=== PATIENT | female | born 1960 | race Caucasian/White ===

== ENCOUNTER → 2016-07-26 | Outpatient (CLI) | payer OTHER ==
[~2016-07-26] MED LIST: ALBUTEROL 0.5ML INH; AMITRIPTYLINE100 MG PO; AMITRYPTYLINE PO; ARIXTRA10 MG/0.8 SQ; ATIVAN0.5 MG PO; AUGMENTIN PO; B-COMPLEX1 TAB PO; BACLOFEN10 MG PO; BAYER ASPIRIN325 M1; BAYER ASPIRIN325 M1 PO; BENZONATATE PO; BUSPIRONE HCL7.5 MG PO; DICLOFENAC PO; DICYCLOMINE HCL20 MG PO; DOCU SOFT100 M1 PO; ENDOCET 5-3251 EACH PO; FEROSUL325 ( 651 PO; FLEXERIL; FLEXERIL PO; FLEXERIL10 MG PO; FOLIC ACID1 MG PO; HYDROCODONE-A1 UDTA4 PO; HYDROXYZINE HCL25 M1 DOB; HYDROXYZINE HCL25 M1 PO; HYDROXYZINE PAM25 M1 PO; IBUPROFEN PO; IBUPROFEN800 MG PO; KETOPROFEN PO; KLOR-CON PO; LOW DOSE ASPIRI81 M1 PO; MEDROL4 MG/DOSE-; MEDROL4 MG/DOSE- PO; NEURONTIN300 MG PO; ONDANSETRON ODT4 MG PO; REMERON15 MG PO; REQUIP0.25 MG PO; ROBITUSSIN A-C S5 ML PO; SERTRALINE HCL50 M1 PO; SIMVASTATIN20 MG PO; TIZANIDINE HCL4 M1 PO; TRAZODONE PO; TYLENOL #3 PO; TYLOX1 CAP 5/50 DOB; VITAMIN D-32000 UNI1 PO; ZANAFLEX; ZITHROMAX PO; ZOCOR; ZOCOR20 MG PO
--- NOTE | ~2016-07-26 | MR112 ---
[facility] A Service of [facility] & [facility] RADIOLOGY TEXT RESULTS PATIENT: YURI ALATORRE LOCATION: [facility] : 56 UNIT #: [id number] AGE: [address]: Zack Johnson MD SEX: F ORDER DR: [id number] [facility] [address] [place], [place] [address] [id number] O MR#: [id number] Acc #: [id number] NAME: YURI ALATORRE. : 1960 SEX: F STUDY DATE/TIME: 07/26/2016 19:40 UNIT: [facility] ROOM: STUDY DESCRIPTION: MR Lumbar WWo Contrast Attending Physician: Zack Johnson M.D. Referring Physician: Zack Johnson M.D. Ordering Physician: Zack Johnson M.D. Primary Care Physician: Marvin Hawk M.D. MRI CENTER REPORT This report is preliminary unless electronic signature is present. EXAM MRI of the lumbar spine with and without contrast dated 07/26/2016 COMPARISON MRI of the lumbar spine with and without contrast dated 04/16/2016. HISTORY Acute low back pain since April 2016. Pain extends to the right leg. 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 FINDINGS Multisequence, multiplanar imaging of the lumbar spine was obtained with and without contrast. 13 mL of MultiHance was administered intravenously. Vertebral body heights are preserved. Edematous changes are noted from L1 to S1. Conus terminates at T12-L1. Signal of conus and cauda equina are within normal limits. Significant infectious/inflammatory changes are redemonstrated in the lower lumbar spine and it appears to have improved in the interval. There is abnormal soft tissue noted in the anterior epidural space of L4-5 extending slightly to the upper aspect of L5-S1 level. There is enhancing of normal soft tissue noted in bilateral lateral recess and neural foramina particularly on the right at the level of L4-5 extending from the abnormal disc. These kind of changes are also noted at L5-S1 but to a lesser degree and is seen predominantly along the superior aspect of the disc involving bilateral portions of the upper neural foramina and bilateral lateral recess. No well defined drainable abscess collection is identified in the adjacent soft tissues. There is some inflammatory change noted around the vertebral bodies in the paravertebral space and extending towards the epidural space. It was also noted previously but it probably had slightly improved in the interval. There are edematous changes noted in bilateral L5 and right L4 pedicle with minimal edema in the left L4 pedicle. The edematous changes noted adjacent to the facet joints and in STS. [facility] A Service of [facility] RADIOLOGY TEXT RESULTS PATIENT: YURI ALATORRE [facility] UNIT #: [id number] AGE: [address]: Zack Johnson MD SEX: F ORDER DR: the posterior paraspinal muscles have improved when compared to the prior sagittal T2 STIR sequence. Previously noted right psoas abscess at the level of S1 is not seen in the current study and there is probably some improvement. In the prior study the imaging extended further inferiorly to completely visualize the right psoas muscle infectious spread within the current study it did not go as far inferiorly, slightly limiting evaluation. There are nonenhancing cysts in medial aspect of bilateral mid kidneys. L1-2: No significant abnormality. L2-3: Minimal bilateral facet change but otherwise unremarkable. L3-4: Concentric disc bulge with superimposed left central to foraminal broad-based protrusion. There are bilateral small foraminal to extraforaminal broad-based protrusions with mild inferior bilateral neural foraminal narrowing. Borderline size canal. L4-5: The site of inflammatory change is redemonstrated without any significant interval worsening. It is stable to improved when compared to the previous study. There are bilateral moderate to severe facet hypertrophic changes noted with transverse canal stenosis, stable. Bilateral mild lateral recess stenosis is also present along with moderate to severe left and severe right neural foraminal narrowing. L5-S1: Disc osteophyte complex with mild bilateral facet change. There is mild inflammatory change extending into the anterior epidural space from above but there is no significant canal stenosis or neural foraminal narrowing. Degenerative changes at various levels of the lumbar spine are stable. IMPRESSION 1. Findings of infection/inflammation appear to have improved in the interval but there is still residual disease. 2. Enhancing changes are noted from the level of L4 to S1 with involvement of disc spaces particularly L4-5. The extension into the adjacent paravertebral region appears to have improved in the interval particularly in the right psoas muscle where previously a lesion suggestive of phlegmon or an abscess was identified. 3. Conus and cauda equina are within normal limits. 4. There is also infectious/inflammatory changes noted around the discs extending to the anterior epidural space that is slightly better when compared to the previous study. Edema is seen in the bilateral L5 and in the right L4 pedicle with some decrease in the left L4 pedicle. Facet hypertrophic changes with edema is also seen but the amount of edema overall adjacent to the hypertrophic facet joints in the paraspinal posterior muscles has decreased in the interval. 5. Degenerative changes at various levels of the lumbar spine are stable. [facility] A Service of [facility] RADIOLOGY TEXT RESULTS PATIENT: YURI ALATORRE LOCATION: [facility] : 56 UNIT #: [id number] AGE: [address]: Zack Johnson MD SEX: F ORDER DR: Dictated by... Staci Gutierres M.D. THIS IS AN ELECTRONICALLY VERIFIED REPORT Staci Gutierres M.D. at 07/28/2016 5:21 PM CPR/rnr TD: 07/27/2016 14:53 JOB #: [id number] MRI CENTER REPORT Page 1 of 1 COPY
== END | disposition home or self-care (01) ==
LOC: CMRI 19:06
DX: M54.5 Low back pain (principal); M47.816 Spondylosis without myelopathy or radiculopathy, lumbar region
CPT/HCPCS: 72158; A9577